=== PATIENT | female | born 1965 | race American Indian/Alaskan Native ===

== ENCOUNTER 2021-06-02 13:58 | Inpatient (IN) | payer SELFPAY ==
[2021-06-02] MEDS ORDERED: ACETAMINOPHEN 325 MG TAB PO PRN ×3 (16:07→17:33)
[2021-06-02] MEDS ORDERED: HYDROmorphone 1 MG/1 ML INJ IV PRN (16:07)
[2021-06-02] MEDS ORDERED: SODIUM CHLORIDE 0.9% 1000 ML 1,000 ML ONE (16:19)
[2021-06-02] MEDS ORDERED: HYDROmorphone 1 MG/1 ML INJ IV ONE (16:20)
[2021-06-02] MEDS ORDERED: LACTATED RINGERS 1,000 ML IV ONE (16:20)
[2021-06-02] MEDS ORDERED: ACETAMINOPHEN 500 MG TAB PO ONE (16:20)
--- NOTE | 2021-06-02 16:22 | Emergency Department Report ---
ED General Adult HPI - General Chief complaint: Skin Rash Stated complaint: RASH PUI?: No Time Seen by Provider: 06/02/21 16:09 Source: patient, RN notes reviewed, old records reviewed Mode of arrival: Ambulatory Limitations: Physical Limitation - History of Present Illness Initial comments: The patient was evaluated in the emergency department for symptoms described in the history of present illness. He/she was evaluated in the context of the global COVID-19 pandemic, which necessitated consideration that the patient might be at risk for infection with the virus that causes COVID-19. Institutional protocols and algorithms that pertain to the evaluation of patients at risk for COVID-19 are in a state of rapid change based on information released by regulatory bodies including the CDC and federal and state organizations. These policies and algorithms were followed during the patient's care in the emergency department. Please note that these policies, procedures and recommendations changed on a rapid basis. Patient is a 55-year-old female. The patient has not shingles vaccinated. The patient cannot recall if she has had chickenpox in the past. Patient presents to the ER today with a complaint of 1 week intensely painful pruritic lesion noted to the left ear, left neck, left shoulder, left posterior thorax, left back. Positive fevers and chills. No vomiting. Does not have an outpatient primary care doctor. Has not had appropriate outpatient health maintenance by her history. -: Gradual, days(s) Location: head, neck, chest, back Quality: burning, stabbing, aching Consistency: constant Improves with: none Worsens with: movement - Related Data Previous Rx's Medication Instructions Recorded Last Taken Type Metoprolol [Lopressor TAB] 25 mg PO BID #60 tablet 10/07/19 Unknown Rx hydroCHLOROthiazide [HCTZ] 25 mg PO QDAY #30 tablet 10/07/19 Unknown Rx levoFLOXacin [Levaquin] 750 mg PO QDAY #7 tablet 10/07/19 Unknown Rx Allergies Allergy/AdvReac Type Severity Reaction Status Date / Time No Known Allergies Allergy Verified 06/02/13 12:06 ED Review of Systems ROS: Stated complaint: RASH Other details as noted in HPI Constitutional: fever, malaise, weakness ENT: denies: epistaxis Respiratory: denies: cough Cardiovascular: denies: chest pain Gastrointestinal: denies: abdominal pain Genitourinary: dysuria Musculoskeletal: arthralgia, myalgia Skin: rash, lesions, change in color Neurological: weakness Psychiatric: anxiety ED Past Medical Hx - Past Medical History Hx Hypertension: Yes Hx Diabetes: Yes Additional medical history: Patient states the patient has been under substantial stress recently. She does have a history of anxiety but she has not been treated for a panic disorder. She is not currently taking any medicines per her . - Surgical History Additional Surgical History: Right Knee surgery - Social History Smoking Status: Current Every Day Smoker - Medications Home Medications: Home Medications Medication Instructions Recorded Confirmed Last Taken Type Metoprolol [Lopressor TAB] 25 mg PO BID #60 tablet 10/07/19 Unknown Rx hydroCHLOROthiazide [HCTZ] 25 mg PO QDAY #30 tablet 10/07/19 Unknown Rx levoFLOXacin [Levaquin] 750 mg PO QDAY #7 tablet 10/07/19 Unknown Rx ED Physical Exam - General Limitations: Physical Limitation General appearance: alert, anxious - Head Head exam: Present: normocephalic - Eye Eye exam: Present: normal appearance, EOMI. Absent: nystagmus - ENT ENT exam: Present: normal exam, normal orophraynx, mucous membranes moist, normal external ear exam - Neck Neck exam: Present: full ROM, other (On the left lateral neck, vesicular excoriated erythematous lesions, noted in the C2, C3, C4, and C5 distribution.). Absent: normal inspection - Respiratory Respiratory exam: Present: other (Pulmonary auscultation not performed secondary to lack of disposable stethoscope). Absent: stridor - Cardiovascular Cardiovascular Exam: Present: tachycardia (Noted on vital signs.), other (Cardiac auscultation not performed secondary to lack of disposable stethoscope) - GI/Abdominal GI/Abdominal exam: Present: soft. Absent: distended, tenderness, guarding, rebound, rigid, pulsatile mass - Extremities Exam Extremities exam: Present: normal inspection, full ROM, other (2+ pulses noted in the bilateral upper and lower extremities. There is no palpable cord. negative Homans sign. Muscular compartments are soft. The pelvis is stable.). Absent: pedal edema, calf tenderness - Back Exam Back exam: Present: normal inspection. Absent: tenderness, CVA tenderness (R), CVA tenderness (L), paraspinal tenderness, vertebral tenderness - Neurological Exam Neurological exam: Present: alert, oriented X3, other (No facial droop. Tongue midline. Extraocular movements intact bilaterally. Facial sensation intact to light touch in V1, V2, V3 distribution bilaterally. 5 and a 5 strength in 4 extremities. Sensation intact to light touch in 4 extremities.). Absent: motor sensory deficit - Psychiatric Psychiatric exam: Present: anxious - Skin Skin exam: Present: rash, erythema, vesicles ED Course Vital Signs 06/02/21 06/02/21 16:03 16:31 Temperature 103.3 F H 102.6 F H Pulse Rate 143 H 118 H Respiratory 17 20 Rate Blood Pressure 145/86 Blood Pressure 151/95 [Right] O2 Sat by Pulse 98 95 Oximetry - Reevaluation(s) Reevaluation #1: 06/02/21 16:58 Maintain patient on isolation 06/02/21 17:04 Hyponatremia likely secondary to hypovolemic hyponatremia. This is likely secondary to sepsis. 06/02/21 17:32 Dr. Lui to admit patient to the medical service. ED Medical Decision Making - Lab Data Result diagrams: 06/02/21 16:25 06/02/21 16:25 Vital Signs 06/02/21 06/02/21 16:03 16:31 Temperature 103.3 F H 102.6 F H Pulse Rate 143 H 118 H Respiratory 17 20 Rate Blood Pressure 145/86 Blood Pressure 151/95 [Right] O2 Sat by Pulse 98 95 Oximetry Lab Results 06/02/21 06/02/21 Range/Units 16:25 16:25 WBC 5.8 (4.5-11.0) K/mm3 RBC 5.59 H (3.65-5.03) M/mm3 Hgb 15.9 H (10.1-14.3) gm/dl Hct 47.2 H (30.3-42.9) % MCV 84 (79-97) fl MCH 28 (28-32) pg MCHC 34 (30-34) % RDW 13.4 (13.2-15.2) % Plt Count 208 (140-440) K/mm3 Lactic Acid 1.30 (0.7-2.0) mmol/L Lab Results 06/02/21 06/02/21 06/02/21 Range/Units 16:25 16:25 16:25 WBC 5.8 (4.5-11.0) K/mm3 RBC 5.59 H (3.65-5.03) M/mm3 Hgb 15.9 H (10.1-14.3) gm/dl Hct 47.2 H (30.3-42.9) % MCV 84 (79-97) fl MCH 28 (28-32) pg MCHC 34 (30-34) % RDW 13.4 (13.2-15.2) % Plt Count 208 (140-440) K/mm3 Add Manual Diff Complete Total Counted 100 Seg Neuts % (Manual) 65.0 (40.0-70.0) % Band Neutrophils % 0 % Lymphocytes % (Manual) 19.0 (13.4-35.0) % Reactive Lymphs % (Man) 0 % Monocytes % (Manual) 15.0 H (0.0-7.3) % Eosinophils % (Manual) 1.0 (0.0-4.3) % Basophils % (Manual) 0 (0.0-1.8) % Metamyelocytes % 0 % Myelocytes % 0 % Promyelocytes % 0 % Blast Cells % 0 % Nucleated RBC % Not Reportable Seg Neutrophils # Man 3.8 (1.8-7.7) K/mm3 Band Neutrophils # 0.0 K/mm3 Lymphocytes # (Manual) 1.1 L (1.2-5.4) K/mm3 Abs React Lymphs (Man) 0.0 K/mm3 Monocytes # (Manual) 0.9 H (0.0-0.8) K/mm3 Eosinophils # (Manual) 0.1 (0.0-0.4) K/mm3 Basophils # (Manual) 0.0 (0.0-0.1) K/mm3 Metamyelocytes # 0.0 K/mm3 Myelocytes # 0.0 K/mm3 Promyelocytes # 0.0 K/mm3 Blast Cells # 0.0 K/mm3 WBC Morphology Not Reportable Hypersegmented Neuts Not Reportable Hyposegmented Neuts Not Reportable Hypogranular Neuts Not Reportable Smudge Cells Not Reportable Toxic Granulation Not Reportable Toxic Vacuolation Not Reportable Dohle Bodies Not Reportable Pelger-Huet Anomaly Not Reportable Neena Rods Not Reportable Platelet Estimate Consistent w auto Clumped Platelets Not Reportable Plt Clumps, EDTA Not Reportable Large Platelets Not Reportable Giant Platelets Not Reportable Platelet Satelliting Not Reportable Plt Morphology Comment Not Reportable RBC Morphology Normal Dimorphic RBCs Not Reportable Polychromasia Not Reportable Hypochromasia Not Reportable Poikilocytosis Not Reportable Anisocytosis Not Reportable Microcytosis Not Reportable Macrocytosis Not Reportable Spherocytes Not Reportable Pappenheimer Bodies Not Reportable Sickle Cells Not Reportable Target Cells Not Reportable Tear Drop Cells Not Reportable Ovalocytes Not Reportable Helmet Cells Not Reportable Payton-[place]at[place]ne Bodies Not Reportable Prosper Rings Not Reportable Mesa Cells Not Reportable Bite Cells Not Reportable Crenated Cell Not Reportable Elliptocytes Not Reportable Acanthocytes (Spur) Not Reportable Rouleaux Not Reportable Hemoglobin C Crystals Not Reportable Schistocytes Not Reportable Malaria parasites Not Reportable Leo Bodies Not Reportable Hem Pathologist Commnt No Sodium 129 L (137-145) mmol/L Potassium 4.5 (3.6-5.0) mmol/L Chloride 94.3 L (98-107) mmol/L Carbon Dioxide 23 (22-30) mmol/L Anion Gap 16 mmol/L BUN 10 (7-17) mg/dL Creatinine 0.7 (0.6-1.2) mg/dL Estimated GFR > 60 ml/min BUN/Creatinine Ratio 14 % Glucose 111 H (65-100) mg/dL Lactic Acid 1.30 (0.7-2.0) mmol/L Calcium 9.2 (8.4-10.2) mg/dL Total Bilirubin 0.50 (0.1-1.2) mg/dL AST 25 (5-40) units/L ALT 35 (7-56) units/L Alkaline Phosphatase 107 (35-129) units/L Total Creatine Kinase (30-135) units/L Total Protein 7.4 (6.3-8.2) g/dL Albumin 3.7 L (3.9-5) g/dL Albumin/Globulin Ratio 1.0 % 06/02/21 Range/Units 16:29 WBC (4.5-11.0) K/mm3 RBC (3.65-5.03) M/mm3 Hgb (10.1-14.3) gm/dl Hct (30.3-42.9) % MCV (79-97) fl MCH (28-32) pg MCHC (30-34) % RDW (13.2-15.2) % Plt Count (140-440) K/mm3 Add Manual Diff Total Counted Seg Neuts % (Manual) (40.0-70.0) % Band Neutrophils % % Lymphocytes % (Manual) (13.4-35.0) % Reactive Lymphs % (Man) % Monocytes % (Manual) (0.0-7.3) % Eosinophils % (Manual) (0.0-4.3) % Basophils % (Manual) (0.0-1.8) % Metamyelocytes % % Myelocytes % % Promyelocytes % % Blast Cells % % Nucleated RBC % Seg Neutrophils # Man (1.8-7.7) K/mm3 Band Neutrophils # K/mm3 Lymphocytes # (Manual) (1.2-5.4) K/mm3 Abs React Lymphs (Man) K/mm3 Monocytes # (Manual) (0.0-0.8) K/mm3 Eosinophils # (Manual) (0.0-0.4) K/mm3 Basophils # (Manual) (0.0-0.1) K/mm3 Metamyelocytes # K/mm3 Myelocytes # K/mm3 Promyelocytes # K/mm3 Blast Cells # K/mm3 WBC Morphology Hypersegmented Neuts Hyposegmented Neuts Hypogranular Neuts Smudge Cells Toxic Granulation Toxic Vacuolation Dohle Bodies Pelger-Huet Anomaly Neena Rods Platelet Estimate Clumped Platelets Plt Clumps, EDTA Large Platelets Giant Platelets Platelet Satelliting Plt Morphology Comment RBC Morphology Dimorphic RBCs Polychromasia Hypochromasia Poikilocytosis Anisocytosis Microcytosis Macrocytosis Spherocytes Pappenheimer Bodies Sickle Cells Target Cells Tear Drop Cells Ovalocytes Helmet Cells Payton-Joppatowne Bodies Prosper Rings Rashard Cells Bite Cells Crenated Cell Elliptocytes Acanthocytes (Spur) Rouleaux Hemoglobin C Crystals Schistocytes Malaria parasites Leo Bodies Hem Pathologist Commnt Sodium (137-145) mmol/L Potassium (3.6-5.0) mmol/L Chloride (98-107) mmol/L Carbon Dioxide (22-30) mmol/L Anion Gap mmol/L BUN (7-17) mg/dL Creatinine (0.6-1.2) mg/dL Estimated GFR ml/min BUN/Creatinine Ratio % Glucose (65-100) mg/dL Lactic Acid (0.7-2.0) mmol/L Calcium (8.4-10.2) mg/dL Total Bilirubin (0.1-1.2) mg/dL AST (5-40) units/L ALT (7-56) units/L Alkaline Phosphatase (35-129) units/L Total Creatine Kinase 171 H (30-135) units/L Total Protein (6.3-8.2) g/dL Albumin (3.9-5) g/dL Albumin/Globulin Ratio % - Medical Decision Making Differential diagnosis, including but not limited to: Bacteremia, viremia, zoster Assessment and plan: 55-year-old female presenting with what appears to be sepsis secondary to multiple dermatomal lesions affected by shingles/zoster, including C2-C6 distributions. She is not encephalopathic. She meets criteria for admission and hospitalization secondary to the aforementioned. Start pain medication, fluids, acyclovir, Bactrim orally, as well as Ancef. Admit this patient to the medical service. Discussed this with the patient. She is agreeable to this plan of care. Laboratory studies pending. Awaiting callback from hospital physician to arrange admission Critical care attestation.: If time is entered above; I have spent that time in minutes in the direct care of this critically ill patient, excluding procedure time. ED Disposition Clinical Impression: SIRS (systemic inflammatory response syndrome), Disseminated zoster, Hyponatremia Disposition: ADMITTED INPATIENT Is pt being admited?: Yes Does the pt Need Aspirin: No Condition: Good Referrals: PRIMARY CARE, [Primary Care Provider] - 3-5 Days
[2021-06-02] MEDS ORDERED: valACYclovir 500 MG TAB PO NR (16:30)
[2021-06-02 16:36] LABS: Hematocrit 47.2 % (30.3-42.9); Hemoglobin 15.9 gm/dl (10.1-14.3); Mean Corpuscular HGB Conc 34 % (30-34); Mean Corpuscular Volume 84 fl (79-97); Platelet Count 208 K/mm3 (140-440); Red Blood Count 5.59 M/mm3 (3.65-5.03); Red Cell Distribution Width 13.4 % (13.2-15.2)
--- NOTE | 2021-06-02 16:36 | Emergency Department Report ---
ED Rash HPI - HPI Stated Complaint: RASH Duration: 5 Days ED Review of Systems ROS: Stated complaint: RASH Other details as noted in HPI ED Past Medical Hx - Past Medical History Hx Hypertension: Yes Hx Diabetes: Yes Additional medical history: Patient states the patient has been under substantial stress recently. She does have a history of anxiety but she has not been treated for a panic disorder. She is not currently taking any medicines per her . - Surgical History Additional Surgical History: Right Knee surgery - Social History Smoking Status: Current Every Day Smoker - Medications Home Medications: Home Medications Medication Instructions Recorded Confirmed Last Taken Type Metoprolol [Lopressor TAB] 25 mg PO BID #60 tablet 10/07/19 Unknown Rx hydroCHLOROthiazide [HCTZ] 25 mg PO QDAY #30 tablet 10/07/19 Unknown Rx levoFLOXacin [Levaquin] 750 mg PO QDAY #7 tablet 10/07/19 Unknown Rx Rash Exam - Exam General: Vital signs noted. No distress. Alert and acting appropriately. ED Course Vital Signs 06/02/21 16:03 Temperature 103.3 F H Pulse Rate 143 H Respiratory 17 Rate Blood Pressure 145/86 O2 Sat by Pulse 98 Oximetry Critical care attestation.: If time is entered above; I have spent that time in minutes in the direct care of this critically ill patient, excluding procedure time. ED Disposition Condition: Stable
[2021-06-02] MEDS ORDERED: ceFAZolin/NS 1 GM/50 ML 1 GM/50 ML BAG IV ONE (16:52)
[2021-06-02] MEDS ORDERED: SULFAMETHOXAZOLE/TRIMETHOPRIM 800/160MG DS TAB PO ONE (16:53)
[2021-06-02] MEDS ORDERED: ACYCLOVIR 800 MG in SODIUM CHLORIDE 0.9% 100 ML IV STA (16:54)
[2021-06-02 16:59] LABS: Alanine Aminotransferase 35 units/L (7-56); Albumin 3.7 g/dL (3.9-5); BUN/Creatinine Ratio 14; Blood Urea Nitrogen 10 mg/dL (7-17); Calcium 9.2 mg/dL (8.4-10.2); Hemolysis Index 17
[2021-06-02] MEDS ORDERED: SODIUM CHLORIDE 0.9% 1000 ML 1,000 ML IV ONE (17:04)
[2021-06-02] MEDS ORDERED: ONDANSETRON 4 MG/2 ML INJ IV PRN (17:33)
[2021-06-02] MEDS ORDERED: SODIUM CHLORIDE 0.9% 1000 ML IV SOLN IV ONE (17:33)
[2021-06-02] MEDS ORDERED: ALBUTEROL 2.5 MG/3 ML NEBU IH PRN (17:33)
--- NOTE | 2021-06-02 17:44 | History and Physical Report ---
History of Present Illness Chief complaint: My skin hurts History of present illness: 55 YO Female with Nicotine Dependence, HTN, RICHY presents to ED for evaluation. Patient states "this stuff hurts". Patient states that she had experienced a painful skin rash over the past 1 week. Patient states that the rash began in the area of her left ear but has subsequently spread to her left neck, left shoulder left back as well as left chest. Patient acknowledges fever to 103 F. Patient transported to [facility] via private vehicle for further care and evaluation of the aforementioned symptoms. The patient was seen and evaluated in the emergency department. All lab and imaging studies reviewed. Fever to 103 F, tachycardia with a heart rate in the 140s, and respiratory rate in the 20s. Patient found to have sepsis secondary to disseminated zoster infection complicated by cellulitis. Patient admitted to medical floor and initiated on sepsis protocol due to increased risk of worsening symptoms. Patient denies chills, chest pain, palpitation, adductive cough, skin rash, recent ill contacts, eye pain, blurred vision, recent ill contacts, known exposure to COVID-19. Prior admission on 09/14/2019 reviewed. All medication listed at time of admission has been reconciled. Advanced care planning conducted in ED. Past History Past Medical History: hypertension, other (See HPI) Past Surgical History: Other (Right knee surgery) Social history: , lives with family, smoking Family history: hypertension Medications and Allergies Allergies Allergy/AdvReac Type Severity Reaction Status Date / Time No Known Allergies Allergy Verified 06/02/13 12:06 Home Medications Medication Instructions Recorded Confirmed Last Taken Type Metoprolol [Lopressor TAB] 25 mg PO BID #60 tablet 10/07/19 Unknown Rx hydroCHLOROthiazide [HCTZ] 25 mg PO QDAY #30 tablet 10/07/19 Unknown Rx levoFLOXacin [Levaquin] 750 mg PO QDAY #7 tablet 10/07/19 Unknown Rx Active Meds: Active Medications Acetaminophen (Acetaminophen 325 Mg Tab) 650 mg PO Q4H PRN PRN Reason: Pain MILD(1-3)/Fever >100.5/DAMIAN Acetaminophen (Acetaminophen 325 Mg Tab) 650 mg PO Q6H PRN PRN Reason: Pain, Mild (1-3) Albuterol (Albuterol 2.5 Mg/3 Ml Nebu) 2.5 mg IH Q4HRT PRN PRN Reason: Shortness Of Breath Hydrochlorothiazide (Hydrochlorothiazide 25 Mg Tab) 25 mg PO QDAY LALITA Hydromorphone HCl (Hydromorphone 1 Mg/1 Ml Inj) 0.5 mg IV Q12H PRN PRN Reason: Pain , Severe (7-10) Acyclovir 800 mg/ Sodium (Chloride) 116 mls @ 100 mls/hr IV NOW STA; Protocol Stop: 06/02/21 18:03 Sodium Chloride (Nacl 0.9% 1000 Ml) 1,000 mls @ 999 mls/hr IV BOLUS ONE Stop: 06/02/21 18:04 Clindamycin HCl (Cleocin 600 Mg/50 Ml) 600 mg in 50 mls @ 100 mls/hr IV Q8H LALITA; Protocol Metoprolol Tartrate (Metoprolol Tartrate 25 Mg Tab) 25 mg PO BID LALITA Ondansetron HCl (Ondansetron 4 Mg/2 Ml Inj) 4 mg IV Q8H PRN PRN Reason: Nausea And Vomiting Oxycodone/Acetaminophen (Oxycodone /Acetaminophen 5-325mg Tab) 1 tab PO Q6H PRN PRN Reason: Pain, Moderate (4-6) Sodium Chloride (Sodium Chloride 0.9% 10 Ml Flush Syringe) 10 ml IV BID LALITA Sodium Chloride (Sodium Chloride 0.9% 10 Ml Flush Syringe) 10 ml IV PRN PRN PRN Reason: LINE FLUSH Sodium Chloride (Sodium Chloride 0.9% 1000 Ml Iv Soln) 1,770 ml 30 ml/kg (1770 ml) IV ONCE ONE Stop: 06/02/21 17:34 Review of Systems Constitutional: fever, no weight loss, no weight gain, no chills, no weakness, no malaise, no lethargy Ears, nose, mouth and throat: no ear pain, no ear discharge, no tinnitis, no decreased hearing Breasts: no change in shape, no swelling, no mass Cardiovascular: no chest pain, no orthopnea, no palpitations Respiratory: no cough, no cough with sputum, no excessive sputum, no hemoptysis Gastrointestinal: no nausea, no vomiting, no diarrhea, no change in bowel habits, no hematemesis Genitourinary Female: no pelvic pain, no flank pain, no dysuria, no urinary f requency, no urgency Rectal: no pain, no incontinence, no bleeding Musculoskeletal: no neck stiffness, no neck pain, no arm numbness/tingling, no low back pain, no leg numbness/tingling Integumentary: rash, blisters, other (Erythema) Neurological: no transient paralysis, no paralysis, no weakness, no parathesias, no tingling, no seizures, no syncope Psychiatric: anxiety, no change in sleep habits, no insomnia, no hypersomnia, no disorientation Endocrine: no cold intolerance, no heat intolerance, no polyphagia, no excessive thirst, no polydipsia, no nocturia Hematologic/Lymphatic: no easy bruising, no easy bleeding, no lymphedema Allergic/Immunologic: no urticaria, no persistent infections, no anaphylaxis Exam - Constitutional Vitals: Temp Pulse Resp BP Pulse Ox 102.6 F H 118 H 20 151/95 95 06/02/21 16:31 06/02/21 16:31 06/02/21 16:31 06/02/21 16:31 06/02/21 16:31 General appearance: Present: mild distress - EENT Eyes: Present: PERRL ENT: hearing intact, clear oral mucosa - Neck Neck: Present: supple, normal ROM - Respiratory Respiratory effort: normal Respiratory: bilateral: CTA - Cardiovascular Heart Sounds: Present: S1 & S2. Absent: rub, click - Extremities Extremities: pulses symmetrical, No edema Peripheral Pulses: abnormal (Capillary refill greater than 3.5 seconds) - Abdominal General gastrointestinal: Present: soft, non-tender, non-distended, normal bowel sounds Female genitourinary: Present: normal - Integumentary Integumentary: Present: clear, erythema, rash, decreased turgor - Musculoskeletal Musculoskeletal: generalized weakness - Psychiatric Psychiatric: appropriate mood/affect, intact judgment & insight, cooperative - Neurologic Neurologic: CNII-XII intact, moves all extremities Results - Labs CBC & Chem 7: 06/02/21 16:25 06/02/21 16:25 Labs: Abnormal lab results 06/02/21 06/02/21 06/02/21 Range/Units 16:25 16:25 16:29 RBC 5.59 H (3.65-5.03) M/mm3 Hgb 15.9 H (10.1-14.3) gm/dl Hct 47.2 H (30.3-42.9) % Sodium 129 L (137-145) mmol/L Chloride 94.3 L (98-107) mmol/L Glucose 111 H (65-100) mg/dL Total Creatine Kinase 171 H (30-135) units/L Albumin 3.7 L (3.9-5) g/dL Assessment and Plan - Patient Problems (1) Sepsis Current Visit: Yes Status: Acute Plan to address problem: Sepsis protocol: CBC, CMP, urinalysis, IV antibiotic therapy, IV fluid res uscitation therapy, maintain mean arterial pressure greater than or equal to 65, monitor fluid balance, serial lactic acid level, blood culture. (2) Cellulitis Current Visit: Yes Status: Acute Qualifiers: Site of cellulitis: neck Qualified Code(s): L03.221 - Cellulitis of neck Plan to address problem: IV antibiotic therapy, supportive care, wound care consult. (3) Hyponatremia syndrome Current Visit: Yes Status: Acute Plan to address problem: BMP, IV fluid resuscitation therapy, repeat BMP in a.m. (4) Nicotine dependence Current Visit: Yes Status: Acute Qualifiers: Nicotine product type: cigarettes Substance use status: in withdrawal Qualified Code(s): F17.213 - Nicotine dependence, cigarettes, with withdrawal Plan to address problem: Smoking cessation counseling, supportive care, behavior change counseling, +15 minutes. (5) Hypertension Current Visit: Yes Status: Acute Qualifiers: Hypertension type: primary hypertension Qualified Code(s): I10 - Essential (primary) hypertension Plan to address problem: Monitor blood pressure every shift, continue medical management. (6) Diabetes Current Visit: Yes Status: Acute Plan to address problem: Consistent carbohydrate diet, Accu-Chek, hypoglycemia protocol, insulin protocol. (7) Disseminated zoster Current Visit: Yes Status: Acute Plan to address problem: Acyclovir 10 mg/kg every 8 hours, wound care, pain control (8) DVT prophylaxis Current Visit: Yes Status: Acute Plan to address problem: SCD to bilateral lower extremities while in bed, patient is ambulatory (9) Advance care planning Current Visit: Yes Status: Acute Plan to address problem: Disease education conducted, care plan discussed, diagnosis discussed, prognosis discussed, patient is full code. Patient acknowledges understanding and agreement with care plan, +30 minutes.
[2021-06-02 17:51] LABS: Basophils % (Manual) 0 % (0.0-1.8); Platelet Estimate Consistent w Auto; RBC Morphology Normal; Total Cells Counted 100
[2021-06-02] MEDS: CLINDAMYCIN 600 MG/50 mL 600 MG/50 ML BAG IV SCH (19:21)
[2021-06-02] MEDS: HYDROmorphone 1 MG/1 ML INJ IV PRN (22:22)
[2021-06-03] MEDS: SODIUM CHLORIDE 0.9% IV SCH ×4 (04:40→22:19)
[2021-06-03] MEDS: ACYCLOVIR IV SCH ×4 (04:40→22:19)
[2021-06-03] MEDS: METOPROLOL TARTRATE 25 MG TAB PO SCH ×3 (05:32→22:18)
[2021-06-03] MEDS: CLINDAMYCIN 600 MG/50 mL 600 MG/50 ML BAG IV SCH ×2 (05:33→11:32)
[2021-06-03] MEDS: HYDROmorphone 1 MG/1 ML INJ IV PRN (05:33)
--- NOTE | 2021-06-03 08:57 | Progress Note ---
Assessment and Plan Assessment and plan: #Disseminated zoster #Cellulitis -Patient unvaccinated for shingles; history of chickenpox in childhood -Blood cultures ordered -Continue acyclovir and clindamycin -As needed pain control -Continue contact precautions #Hypertension -Continue metoprolol and hydrochlorothiazide #Hyponatremia -Na 129 -NS started, likely hypovolemic hyponatremia -will continue to monitor Disposition Plan: Continue medical management History Interval history: No acute events overnight. Patient wants to leave AGAINST MEDICAL ADVICE due to receiving cold food. Continues to have excruciating pain on her neck and back. No other complaints at this time. Hospitalist Physical - Physical exam Narrative exam: GENERAL: Well-developed well-nourished. Sitting on the side of the bed in no acute distress. HEENT: Scaling rash with vesicles and crusting on the left chest left-sided face neck and shoulder CHEST/LUNGS: CTAB on room air HEART/CARDIOVASCULAR: Tachycardic. No murmur, rubs or gallops appreciated. ABDOMEN: +BS. NT/ND. SKIN: No rashes noted. NEURO: No focal motor deficit. Follows all commands and is ambulatory. MUSCULOSKELETAL: No joint effusion EXTREMITIES: No cyanosis, clubbing or edema. PSYCH: Cooperative. - Constitutional Vitals: Temp Pulse Resp BP Pulse Ox 98.5 F 110 H 19 184/102 100 06/03/21 05:01 06/03/21 05:01 06/03/21 05:01 06/03/21 05:01 06/03/21 07:43 General appearance: Present: mild distress Results - Labs CBC & Chem 7: 06/05/21 08:04 06/05/21 08:04 Labs: Laboratory Last Values WBC 5.8 K/mm3 (4.5-11.0) 06/02/21 16:25 RBC 5.59 M/mm3 (3.65-5.03) H 06/02/21 16:25 Hgb 15.9 gm/dl (10.1-14.3) H 06/02/21 16:25 Hct 47.2 % (30.3-42.9) H 06/02/21 16:25 MCV 84 fl (79-97) 06/02/21 16:25 MCH 28 pg (28-32) 06/02/21 16:25 MCHC 34 % (30-34) 06/02/21 16:25 RDW 13.4 % (13.2-15.2) 06/02/21 16:25 Plt Count 208 K/mm3 (140-440) 06/02/21 16:25 Add Manual Diff Complete 06/02/21 16:25 Total Counted 100 06/02/21 16:25 Seg Neuts % (Manual) 65.0 % (40.0-70.0) 06/02/21 16:25 Band Neutrophils % 0 % 06/02/21 16:25 Lymphocytes % (Manual) 19.0 % (13.4-35.0) 06/02/21 16:25 Reactive Lymphs % (Man) 0 % 06/02/21 16:25 Monocytes % (Manual) 15.0 % (0.0-7.3) H 06/02/21 16:25 Eosinophils % (Manual) 1.0 % (0.0-4.3) 06/02/21 16:25 Basophils % (Manual) 0 % (0.0-1.8) 06/02/21 16:25 Metamyelocytes % 0 % 06/02/21 16:25 Myelocytes % 0 % 06/02/21 16:25 Promyelocytes % 0 % 06/02/21 16:25 Blast Cells % 0 % 06/02/21 16:25 Nucleated RBC % Not Reportable 06/02/21 16:25 Seg Neutrophils # Man 3.8 K/mm3 (1.8-7.7) 06/02/21 16:25 Band Neutrophils # 0.0 K/mm3 06/02/21 16:25 Lymphocytes # (Manual) 1.1 K/mm3 (1.2-5.4) L 06/02/21 16:25 Abs React Lymphs (Man) 0.0 K/mm3 06/02/21 16:25 Monocytes # (Manual) 0.9 K/mm3 (0.0-0.8) H 06/02/21 16:25 Eosinophils # (Manual) 0.1 K/mm3 (0.0-0.4) 06/02/21 16:25 Basophils # (Manual) 0.0 K/mm3 (0.0-0.1) 06/02/21 16:25 Metamyelocytes # 0.0 K/mm3 06/02/21 16:25 Myelocytes # 0.0 K/mm3 06/02/21 16:25 Promyelocytes # 0.0 K/mm3 06/02/21 16:25 Blast Cells # 0.0 K/mm3 06/02/21 16:25 WBC Morphology Not Reportable 06/02/21 16:25 Hypersegmented Neuts Not Reportable 06/02/21 16:25 Hyposegmented Neuts Not Reportable 06/02/21 16:25 Hypogranular Neuts Not Reportable 06/02/21 16:25 Smudge Cells Not Reportable 06/02/21 16:25 Toxic Granulation Not Reportable 06/02/21 16:25 Toxic Vacuolation Not Reportable 06/02/21 16:25 Dohle Bodies Not Reportable 06/02/21 16:25 Pelger-Huet Anomaly Not Reportable 06/02/21 16:25 Neena Rods Not Reportable 06/02/21 16:25 Platelet Estimate Consistent w auto 06/02/21 16:25 Clumped Platelets Not Reportable 06/02/21 16:25 Plt Clumps, EDTA Not Reportable 06/02/21 16:25 Large Platelets Not Reportable 06/02/21 16:25 Giant Platelets Not Reportable 06/02/21 16:25 Platelet Satelliting Not Reportable 06/02/21 16:25 Plt Morphology Comment Not Reportable 06/02/21 16:25 RBC Morphology Normal 06/02/21 16:25 Dimorphic RBCs Not Reportable 06/02/21 16:25 Polychromasia Not Reportable 06/02/21 16:25 Hypochromasia Not Reportable 06/02/21 16:25 Poikilocytosis Not Reportable 06/02/21 16:25 Anisocytosis Not Reportable 06/02/21 16:25 Microcytosis Not Reportable 06/02/21 16:25 Macrocytosis Not Reportable 06/02/21 16:25 Spherocytes Not Reportable 06/02/21 16:25 Pappenheimer Bodies Not Reportable 06/02/21 16:25 Sickle Cells Not Reportable 06/02/21 16:25 Target Cells Not Reportable 06/02/21 16:25 Tear Drop Cells Not Reportable 06/02/21 16:25 Ovalocytes Not Reportable 06/02/21 16:25 Helmet Cells Not Reportable 06/02/21 16:25 Payton-[place] Bodies Not Reportable 06/02/21 16:25 [place] Rings Not Reportable 06/02/21 16:25 Ava Cells Not Reportable 06/02/21 16:25 Bite Cells Not Reportable 06/02/21 16:25 Crenated Cell Not Reportable 06/02/21 16:25 Elliptocytes Not Reportable 06/02/21 16:25 Acanthocytes (Spur) Not Reportable 06/02/21 16:25 Rouleaux Not Reportable 06/02/21 16:25 Hemoglobin C Crystals Not Reportable 06/02/21 16:25 Schistocytes Not Reportable 06/02/21 16:25 Malaria parasites Not Reportable 06/02/21 16:25 Leo Bodies Not Reportable 06/02/21 16:25 Hem Pathologist Commnt No 06/02/21 16:25 Sodium 129 mmol/L (137-145) L 06/02/21 16:25 Potassium 4.5 mmol/L (3.6-5.0) 06/02/21 16:25 Chloride 94.3 mmol/L (98-107) L 06/02/21 16:25 Carbon Dioxide 23 mmol/L (22-30) 06/02/21 16:25 Anion Gap 16 mmol/L 06/02/21 16:25 BUN 10 mg/dL (7-17) 06/02/21 16:25 Creatinine 0.7 mg/dL (0.6-1.2) 06/02/21 16:25 Estimated GFR > 60 ml/min 06/02/21 16:25 BUN/Creatinine Ratio 14 % 06/02/21 16:25 Glucose 111 mg/dL (65-100) H 06/02/21 16:25 Lactic Acid 0.90 mmol/L (0.7-2.0) 06/03/21 07:55 Calcium 9.2 mg/dL (8.4-10.2) 06/02/21 16:25 Total Bilirubin 0.50 mg/dL (0.1-1.2) 06/02/21 16:25 AST 25 units/L (5-40) 06/02/21 16:25 ALT 35 units/L (7-56) 06/02/21 16:25 Alkaline Phosphatase 107 units/L (35-129) 06/02/21 16:25 Total Creatine Kinase 171 units/L (30-135) H 06/02/21 16:29 Total Protein 7.4 g/dL (6.3-8.2) 06/02/21 16:25 Albumin 3.7 g/dL (3.9-5) L 06/02/21 16:25 Albumin/Globulin Ratio 1.0 % 06/02/21 16:25 Blood Type B POSITIVE 06/02/21 18:18 Antibody Screen Negative 06/02/21 18:18 Microbiology: Microbiology 06/02/21 16:29 Peripheral/Venous Blood Culture - Preliminary Culture in Progress Astudillo/IV: Voiding Method Toilet Active Medications - Current Medications Current Medications: Generic Name Dose Route Start Last Admin Trade Name Freq PRN Reason Stop Dose Admin Acetaminophen 650 mg 06/02/21 17:33 Acetaminophen 325 Mg Tab PO Q4H PRN Pain MILD(1-3)/Fever >100.5/DAMIAN Albuterol 2.5 mg 06/02/21 17:33 Albuterol 2.5 Mg/3 Ml Nebu IH Q4HRT PRN Shortness Of Breath Hydrochlorothiazide 25 mg 06/03/21 10:00 Hydrochlorothiazide 25 Mg Tab PO QDAY LALITA Hydromorphone HCl 0.5 mg 06/02/21 17:33 06/03/21 05:33 Hydromorphone 1 Mg/1 Ml Inj IV 0.5 mg Q12H PRN Administration Pain , Severe (7-10) Clindamycin HCl 600 mg in 50 mls @ 100 mls/hr 06/02/21 18:00 06/03/21 05:33 Cleocin 600 Mg/50 Ml IV 100 mls/hr Q8H LALITA Administration Protocol Acyclovir 590 mg/ Sodium 111.8 mls @ 100 mls/hr 06/02/21 22:00 06/03/21 06:31 Chloride IV 100 mls/hr Q8HR LALITA Administration Protocol Metoprolol Tartrate 25 mg 06/02/21 22:00 06/03/21 05:32 Metoprolol Tartrate 25 Mg Tab PO 25 mg BID LALITA Administration Ondansetron HCl 4 mg 06/02/21 17:33 Ondansetron 4 Mg/2 Ml Inj IV Q8H PRN Nausea And Vomiting Oxycodone/Acetaminophen 1 tab 06/02/21 17:33 Oxycodone /Acetaminophen 5-325mg Tab PO Q6H PRN Pain, Moderate (4-6) Sodium Chloride 10 ml 06/02/21 22:00 06/03/21 05:08 Sodium Chloride 0.9% 10 Ml Flush Syringe IV Not Given BID LALITA Sodium Chloride 10 ml 06/02/21 17:33 Sodium Chloride 0.9% 10 Ml Flush Syringe IV PRN PRN LINE FLUSH
[2021-06-03] MEDS: hydroCHLOROthiazide 25 MG TAB PO SCH (09:28)
[2021-06-03 09:34] LABS: Hematocrit 41.4 % (30.3-42.9); Hemoglobin 13.9 gm/dl (10.1-14.3); Mean Corpuscular HGB Conc 34 % (30-34); Mean Corpuscular Volume 85 fl (79-97); Platelet Count 154 K/mm3 (140-440); Red Blood Count 4.85 M/mm3 (3.65-5.03); Red Cell Distribution Width 13.1 % (13.2-15.2)
[2021-06-03 12:13] LABS: Total Cells Counted 100
[2021-06-03 12:15] LABS: Platelet Estimate Consistent w Auto; RBC Morphology Normal
[2021-06-04] MEDS: HYDROmorphone 1 MG/1 ML INJ IV PRN ×2 (01:03→22:46)
[2021-06-04] MEDS: CLINDAMYCIN 600 MG/50 mL 600 MG/50 ML BAG IV SCH ×5 (02:00→22:48)
[2021-06-04] MEDS: SODIUM CHLORIDE 0.9% IV SCH ×3 (05:47→22:48)
[2021-06-04] MEDS: ACYCLOVIR IV SCH ×3 (05:47→22:48)
[2021-06-04 06:28] LABS: Hematocrit 41.8 % (30.3-42.9); Hemoglobin 14.1 gm/dl (10.1-14.3); Mean Corpuscular HGB Conc 34 % (30-34); Mean Corpuscular Volume 84 fl (79-97); Platelet Count 181 K/mm3 (140-440); Red Blood Count 4.97 M/mm3 (3.65-5.03)
[2021-06-04 06:46] LABS: Blood Urea Nitrogen 10 mg/dL (7-17); Hemolysis Index 4
[2021-06-04 07:31] LABS: BUN/Creatinine Ratio 17
--- NOTE | 2021-06-04 08:54 | Progress Note ---
Assessment and Plan Assessment and plan: #Disseminated zoster #Cellulitis -Patient unvaccinated for shingles; history of chickenpox in childhood -Blood cultures no growth to date x24 hours -Continue acyclovir and clindamycin -As needed pain control -Continue contact precautions #Hypertension -Continue metoprolol and hydrochlorothiazide #Hyponatremia -Continue NS, likely hypovolemic hyponatremia -will continue to monitor History Interval history: No acute events overnight. Patient denies facial pain today. Reported pain has improved significantly since admission. No complaints at this time. Hospitalist Physical - Physical exam Narrative exam: GENERAL: Well-developed well-nourished. In no acute distress. HEENT: Scaling rash with vesicles and crusting on the left chest left-sided face neck and shoulder CHEST/LUNGS: CTAB on room air HEART/CARDIOVASCULAR: RRR. No murmur, rubs or gallops appreciated. ABDOMEN: +BS. NT/ND. NEURO: No focal motor deficit. EXTREMITIES: No cyanosis, clubbing or edema. PSYCH: Cooperative. - Constitutional Vitals: Temp Pulse Resp BP Pulse Ox 97.2 F L 94 H 16 156/85 97 06/04/21 05:42 06/04/21 05:42 06/04/21 05:42 06/04/21 05:42 06/04/21 05:42 General appearance: Present: mild distress Results - Labs CBC & Chem 7: 06/05/21 08:04 06/05/21 08:04 Labs: Laboratory Last Values WBC 5.0 K/mm3 (4.5-11.0) 06/04/21 05:59 RBC 4.97 M/mm3 (3.65-5.03) 06/04/21 05:59 Hgb 14.1 gm/dl (10.1-14.3) 06/04/21 05:59 Hct 41.8 % (30.3-42.9) 06/04/21 05:59 MCV 84 fl (79-97) 06/04/21 05:59 MCH 29 pg (28-32) 06/04/21 05:59 MCHC 34 % (30-34) 06/04/21 05:59 RDW 13.0 % (13.2-15.2) L 06/04/21 05:59 Plt Count 181 K/mm3 (140-440) 06/04/21 05:59 Graves % (Auto) Pole Classifier 06/03/21 07:55 Baso % (Auto) Pole Classifier 06/03/21 07:55 Add Manual Diff Complete 06/03/21 07:55 Total Counted 100 06/03/21 07:55 Seg Neuts % (Manual) 56.0 % (40.0-70.0) 06/03/21 07:55 Band Neutrophils % 0 % 06/03/21 07:55 Lymphocytes % (Manual) 19.0 % (13.4-35.0) 06/03/21 07:55 Reactive Lymphs % (Man) 8.0 % 06/03/21 07:55 Monocytes % (Manual) 14.0 % (0.0-7.3) H 06/03/21 07:55 Eosinophils % (Manual) 2.0 % (0.0-4.3) 06/03/21 07:55 Basophils % (Manual) 1.0 % (0.0-1.8) 06/03/21 07:55 Metamyelocytes % 0 % 06/03/21 07:55 Myelocytes % 0 % 06/03/21 07:55 Promyelocytes % 0 % 06/03/21 07:55 Blast Cells % 0 % 06/03/21 07:55 Nucleated RBC % Not Reportable 06/03/21 07:55 Seg Neutrophils # Man 2.5 K/mm3 (1.8-7.7) 06/03/21 07:55 Band Neutrophils # 0.0 K/mm3 06/03/21 07:55 Lymphocytes # (Manual) 0.9 K/mm3 (1.2-5.4) L 06/03/21 07:55 Abs React Lymphs (Man) 0.4 K/mm3 06/03/21 07:55 Monocytes # (Manual) 0.6 K/mm3 (0.0-0.8) 06/03/21 07:55 Eosinophils # (Manual) 0.1 K/mm3 (0.0-0.4) 06/03/21 07:55 Basophils # (Manual) 0.0 K/mm3 (0.0-0.1) 06/03/21 07:55 Metamyelocytes # 0.0 K/mm3 06/03/21 07:55 Myelocytes # 0.0 K/mm3 06/03/21 07:55 Promyelocytes # 0.0 K/mm3 06/03/21 07:55 Blast Cells # 0.0 K/mm3 06/03/21 07:55 WBC Morphology Not Reportable 06/03/21 07:55 WBC Morphology TNR 06/03/21 07:55 Hypersegmented Neuts Not Reportable 06/03/21 07:55 Hyposegmented Neuts Not Reportable 06/03/21 07:55 Hypogranular Neuts Not Reportable 06/03/21 07:55 Smudge Cells Not Reportable 06/03/21 07:55 Toxic Granulation Not Reportable 06/03/21 07:55 Toxic Vacuolation Not Reportable 06/03/21 07:55 Dohle Bodies Not Reportable 06/03/21 07:55 Pelger-Huet Anomaly Not Reportable 06/03/21 07:55 Neena Rods Not Reportable 06/03/21 07:55 Platelet Estimate Consistent w auto 06/03/21 07:55 Clumped Platelets Not Reportable 06/03/21 07:55 Plt Clumps, EDTA Not Reportable 06/03/21 07:55 Large Platelets Not Reportable 06/03/21 07:55 Giant Platelets Not Reportable 06/03/21 07:55 Platelet Satelliting Not Reportable 06/03/21 07:55 Plt Morphology Comment Not Reportable 06/03/21 07:55 RBC Morphology Normal 06/03/21 07:55 Dimorphic RBCs Not Reportable 06/03/21 07:55 Polychromasia Not Reportable 06/03/21 07:55 Hypochromasia Not Reportable 06/03/21 07:55 Poikilocytosis Not Reportable 06/03/21 07:55 Anisocytosis Not Reportable 06/03/21 07:55 Microcytosis Not Reportable 06/03/21 07:55 Macrocytosis Not Reportable 06/03/21 07:55 Spherocytes Not Reportable 06/03/21 07:55 Pappenheimer Bodies Not Reportable 06/03/21 07:55 Sickle Cells Not Reportable 06/03/21 07:55 Target Cells Not Reportable 06/03/21 07:55 Tear Drop Cells Not Reportable 06/03/21 07:55 Ovalocytes Not Reportable 06/03/21 07:55 Helmet Cells Not Reportable 06/03/21 07:55 Payton-[place] Bodies Not Reportable 06/03/21 07:55 [place] Rings Not Reportable 06/03/21 07:55 [place] Cells Not Reportable 06/03/21 07:55 Bite Cells Not Reportable 06/03/21 07:55 Crenated Cell Not Reportable 06/03/21 07:55 Elliptocytes Not Reportable 06/03/21 07:55 Acanthocytes (Spur) Not Reportable 06/03/21 07:55 Rouleaux Not Reportable 06/03/21 07:55 Hemoglobin C Crystals Not Reportable 06/03/21 07:55 Schistocytes Not Reportable 06/03/21 07:55 Malaria parasites Not Reportable 06/03/21 07:55 Leo Bodies Not Reportable 06/03/21 07:55 Hem Pathologist Commnt No 06/03/21 07:55 Sodium 129 mmol/L (137-145) L 06/04/21 05:59 Potassium 3.7 mmol/L (3.6-5.0) 06/04/21 05:59 Chloride 92.8 mmol/L (98-107) L 06/04/21 05:59 Carbon Dioxide 24 mmol/L (22-30) 06/04/21 05:59 Anion Gap 16 mmol/L 06/04/21 05:59 BUN 10 mg/dL (7-17) 06/04/21 05:59 Creatinine 0.6 mg/dL (0.6-1.2) 06/04/21 05:59 Estimated GFR > 60 ml/min 06/04/21 05:59 BUN/Creatinine Ratio 17 % 06/04/21 05:59 Glucose 88 mg/dL (65-100) 06/04/21 05:59 Lactic Acid 0.90 mmol/L (0.7-2.0) 06/03/21 07:55 Calcium 9.0 mg/dL (8.4-10.2) 06/04/21 05:59 Total Bilirubin 0.50 mg/dL (0.1-1.2) 06/02/21 16:25 AST 25 units/L (5-40) 06/02/21 16:25 ALT 35 units/L (7-56) 06/02/21 16:25 Alkaline Phosphatase 107 units/L (35-129) 06/02/21 16:25 Total Creatine Kinase 171 units/L (30-135) H 06/02/21 16:29 Total Protein 7.4 g/dL (6.3-8.2) 06/02/21 16:25 Albumin 3.7 g/dL (3.9-5) L 06/02/21 16:25 Albumin/Globulin Ratio 1.0 % 06/02/21 16:25 Blood Type B POSITIVE 06/02/21 18:18 Antibody Screen Negative 06/02/21 18:18 Microbiology: Microbiology 06/02/21 16:25 Peripheral/Venous Blood Culture - Preliminary NO GROWTH AFTER 24 HOURS 06/02/21 16:29 Peripheral/Venous Blood Culture - Preliminary NO GROWTH AFTER 24 HOURS Astudillo/IV: Voiding Method Toilet Active Medications - Current Medications Current Medications: Generic Name Dose Route Start Last Admin Trade Name Freq PRN Reason Stop Dose Admin Acetaminophen 650 mg 06/02/21 17:33 Acetaminophen 325 Mg Tab PO Q4H PRN Pain MILD(1-3)/Fever >100.5/DAMIAN Albuterol 2.5 mg 06/02/21 17:33 Albuterol 2.5 Mg/3 Ml Nebu IH Q4HRT PRN Shortness Of Breath Hydrochlorothiazide 25 mg 06/03/21 10:00 06/03/21 09:28 Hydrochlorothiazide 25 Mg Tab PO 25 mg QDAY LALITA Administration Hydromorphone HCl 0.5 mg 06/02/21 17:33 06/04/21 01:03 Hydromorphone 1 Mg/1 Ml Inj IV 0.5 mg Q12H PRN Administration Pain , Severe (7-10) Clindamycin HCl 600 mg in 50 mls @ 100 mls/hr 06/02/21 18:00 06/04/21 02:00 Cleocin 600 Mg/50 Ml IV 100 mls/hr Q8H LALITA Administration Protocol Acyclovir 590 mg/ Sodium 111.8 mls @ 100 mls/hr 06/02/21 22:00 06/04/21 05:47 Chloride IV 100 mls/hr Q8HR LALITA Administration Protocol Metoprolol Tartrate 25 mg 06/02/21 22:00 06/03/21 22:18 Metoprolol Tartrate 25 Mg Tab PO 25 mg BID LALITA Administration Ondansetron HCl 4 mg 06/02/21 17:33 Ondansetron 4 Mg/2 Ml Inj IV Q8H PRN Nausea And Vomiting Oxycodone/Acetaminophen 1 tab 06/02/21 17:33 Oxycodone /Acetaminophen 5-325mg Tab PO Q6H PRN Pain, Moderate (4-6) Sodium Chloride 10 ml 06/02/21 22:00 06/03/21 22:23 Sodium Chloride 0.9% 10 Ml Flush Syringe IV 10 ml BID LALITA Administration Sodium Chloride 10 ml 06/02/21 17:33 Sodium Chloride 0.9% 10 Ml Flush Syringe IV PRN PRN LINE FLUSH
[2021-06-04] MEDS: METOPROLOL TARTRATE 25 MG TAB PO SCH ×2 (10:06→22:45)
[2021-06-04] MEDS: hydroCHLOROthiazide 25 MG TAB PO SCH (10:06)
[2021-06-04] MEDS: oxyCODONE /ACETAMINOPHEN 5-325MG TAB PO PRN (13:18)
[2021-06-05] MEDS: SODIUM CHLORIDE 0.9% IV SCH ×3 (06:12→22:20)
[2021-06-05] MEDS: oxyCODONE /ACETAMINOPHEN 5-325MG TAB PO PRN ×2 (06:12→20:54)
[2021-06-05] MEDS: ACYCLOVIR IV SCH ×3 (06:12→22:20)
--- NOTE | 2021-06-05 07:45 | Progress Note ---
Assessment and Plan Assessment and plan: #Disseminated zoster #Cellulitis -Patient unvaccinated for shingles; history of chickenpox in childhood -Blood cultures no growth to date x48 hours -Continue acyclovir and clindamycin -As needed pain control -Continue contact precautions -Infectious disease consulted for final outpatient antibiotic/antiviral medications recommendations #Hypertension -Continue metoprolol and hydrochlorothiazide #Hyponatremia-resolved -likely hypovolemic hyponatremia -s/p IVFs -will continue to monitor Disposition Plan: continue medical management History Interval history: No acute events overnight. Patient has no complaints at this time. Hospitalist Physical - Physical exam Narrative exam: GENERAL: Well-developed well-nourished. In no acute distress. HEENT: Scaling rash with vesicles and crusting on the left chest left-sided face neck and shoulder CHEST/LUNGS: CTAB on room air HEART/CARDIOVASCULAR: RRR. No murmur, rubs or gallops appreciated. ABDOMEN: +BS. NT/ND. NEURO: No focal motor deficit. EXTREMITIES: No cyanosis, clubbing or edema. PSYCH: Cooperative. - Constitutional Vitals: Temp Pulse Resp BP Pulse Ox 98.5 F 85 18 144/85 96 06/05/21 05:55 06/05/21 05:55 06/05/21 05:55 06/05/21 05:55 06/05/21 05:55 General appearance: Present: mild distress Results - Labs CBC & Chem 7: 06/05/21 08:04 06/05/21 08:04 Labs: Laboratory Last Values WBC 5.0 K/mm3 (4.5-11.0) 06/04/21 05:59 RBC 4.97 M/mm3 (3.65-5.03) 06/04/21 05:59 Hgb 14.1 gm/dl (10.1-14.3) 06/04/21 05:59 Hct 41.8 % (30.3-42.9) 06/04/21 05:59 MCV 84 fl (79-97) 06/04/21 05:59 MCH 29 pg (28-32) 06/04/21 05:59 MCHC 34 % (30-34) 06/04/21 05:59 RDW 13.0 % (13.2-15.2) L 06/04/21 05:59 Plt Count 181 K/mm3 (140-440) 06/04/21 05:59 Avery % (Auto) [employer] Developer 06/03/21 07:55 Baso % (Auto) [employer] Developer 06/03/21 07:55 Add Manual Diff Complete 06/03/21 07:55 Total Counted 100 06/03/21 07:55 Seg Neuts % (Manual) 56.0 % (40.0-70.0) 06/03/21 07:55 Band Neutrophils % 0 % 06/03/21 07:55 Lymphocytes % (Manual) 19.0 % (13.4-35.0) 06/03/21 07:55 Reactive Lymphs % (Man) 8.0 % 06/03/21 07:55 Monocytes % (Manual) 14.0 % (0.0-7.3) H 06/03/21 07:55 Eosinophils % (Manual) 2.0 % (0.0-4.3) 06/03/21 07:55 Basophils % (Manual) 1.0 % (0.0-1.8) 06/03/21 07:55 Metamyelocytes % 0 % 06/03/21 07:55 Myelocytes % 0 % 06/03/21 07:55 Promyelocytes % 0 % 06/03/21 07:55 Blast Cells % 0 % 06/03/21 07:55 Nucleated RBC % Not Reportable 06/03/21 07:55 Seg Neutrophils # Man 2.5 K/mm3 (1.8-7.7) 06/03/21 07:55 Band Neutrophils # 0.0 K/mm3 06/03/21 07:55 Lymphocytes # (Manual) 0.9 K/mm3 (1.2-5.4) L 06/03/21 07:55 Abs React Lymphs (Man) 0.4 K/mm3 06/03/21 07:55 Monocytes # (Manual) 0.6 K/mm3 (0.0-0.8) 06/03/21 07:55 Eosinophils # (Manual) 0.1 K/mm3 (0.0-0.4) 06/03/21 07:55 Basophils # (Manual) 0.0 K/mm3 (0.0-0.1) 06/03/21 07:55 Metamyelocytes # 0.0 K/mm3 06/03/21 07:55 Myelocytes # 0.0 K/mm3 06/03/21 07:55 Promyelocytes # 0.0 K/mm3 06/03/21 07:55 Blast Cells # 0.0 K/mm3 06/03/21 07:55 WBC Morphology Not Reportable 06/03/21 07:55 WBC Morphology TNR 06/03/21 07:55 Hypersegmented Neuts Not Reportable 06/03/21 07:55 Hyposegmented Neuts Not Reportable 06/03/21 07:55 Hypogranular Neuts Not Reportable 06/03/21 07:55 Smudge Cells Not Reportable 06/03/21 07:55 Toxic Granulation Not Reportable 06/03/21 07:55 Toxic Vacuolation Not Reportable 06/03/21 07:55 Dohle Bodies Not Reportable 06/03/21 07:55 Pelger-Huet Anomaly Not Reportable 06/03/21 07:55 Neena Rods Not Reportable 06/03/21 07:55 Platelet Estimate Consistent w auto 06/03/21 07:55 Clumped Platelets Not Reportable 06/03/21 07:55 Plt Clumps, EDTA Not Reportable 06/03/21 07:55 Large Platelets Not Reportable 06/03/21 07:55 Giant Platelets Not Reportable 06/03/21 07:55 Platelet Satelliting Not Reportable 06/03/21 07:55 Plt Morphology Comment Not Reportable 06/03/21 07:55 RBC Morphology Normal 06/03/21 07:55 Dimorphic RBCs Not Reportable 06/03/21 07:55 Polychromasia Not Reportable 06/03/21 07:55 Hypochromasia Not Reportable 06/03/21 07:55 Poikilocytosis Not Reportable 06/03/21 07:55 Anisocytosis Not Reportable 06/03/21 07:55 Microcytosis Not Reportable 06/03/21 07:55 Macrocytosis Not Reportable 06/03/21 07:55 Spherocytes Not Reportable 06/03/21 07:55 Pappenheimer Bodies Not Reportable 06/03/21 07:55 Sickle Cells Not Reportable 06/03/21 07:55 Target Cells Not Reportable 06/03/21 07:55 Tear Drop Cells Not Reportable 06/03/21 07:55 Ovalocytes Not Reportable 06/03/21 07:55 Helmet Cells Not Reportable 06/03/21 07:55 [place] Bodies Not Reportable 06/03/21 07:55 [place] Rings Not Reportable 06/03/21 07:55 [place] Cells Not Reportable 06/03/21 07:55 Bite Cells Not Reportable 06/03/21 07:55 Crenated Cell Not Reportable 06/03/21 07:55 Elliptocytes Not Reportable 06/03/21 07:55 Acanthocytes (Spur) Not Reportable 06/03/21 07:55 Rouleaux Not Reportable 06/03/21 07:55 Hemoglobin C Crystals Not Reportable 06/03/21 07:55 Schistocytes Not Reportable 06/03/21 07:55 Malaria parasites Not Reportable 06/03/21 07:55 Leo Bodies Not Reportable 06/03/21 07:55 Hem Pathologist Commnt No 06/03/21 07:55 Sodium 129 mmol/L (137-145) L 06/04/21 05:59 Potassium 3.7 mmol/L (3.6-5.0) 06/04/21 05:59 Chloride 92.8 mmol/L (98-107) L 06/04/21 05:59 Carbon Dioxide 24 mmol/L (22-30) 06/04/21 05:59 Anion Gap 16 mmol/L 06/04/21 05:59 BUN 10 mg/dL (7-17) 06/04/21 05:59 Creatinine 0.6 mg/dL (0.6-1.2) 06/04/21 05:59 Estimated GFR > 60 ml/min 06/04/21 05:59 BUN/Creatinine Ratio 17 % 06/04/21 05:59 Glucose 88 mg/dL (65-100) 06/04/21 05:59 Lactic Acid 0.90 mmol/L (0.7-2.0) 06/03/21 07:55 Calcium 9.0 mg/dL (8.4-10.2) 06/04/21 05:59 Total Bilirubin 0.50 mg/dL (0.1-1.2) 06/02/21 16:25 AST 25 units/L (5-40) 06/02/21 16:25 ALT 35 units/L (7-56) 06/02/21 16:25 Alkaline Phosphatase 107 units/L (35-129) 06/02/21 16:25 Total Creatine Kinase 171 units/L (30-135) H 06/02/21 16:29 Total Protein 7.4 g/dL (6.3-8.2) 06/02/21 16:25 Albumin 3.7 g/dL (3.9-5) L 06/02/21 16:25 Albumin/Globulin Ratio 1.0 % 06/02/21 16:25 Blood Type B POSITIVE 06/02/21 18:18 Antibody Screen Negative 06/02/21 18:18 Microbiology: Microbiology 06/02/21 16:29 Peripheral/Venous Blood Culture - Preliminary NO GROWTH AFTER 48 HOURS 06/02/21 16:25 Peripheral/Venous Blood Culture - Preliminary NO GROWTH AFTER 24 HOURS Astudillo/IV: Voiding Method Toilet Active Medications - Current Medications Current Medications: Generic Name Dose Route Start Last Admin Trade Name Freq PRN Reason Stop Dose Admin Acetaminophen 650 mg 06/02/21 17:33 Acetaminophen 325 Mg Tab PO Q4H PRN Pain MILD(1-3)/Fever >100.5/DAMIAN Albuterol 2.5 mg 06/02/21 17:33 Albuterol 2.5 Mg/3 Ml Nebu IH Q4HRT PRN Shortness Of Breath Hydrochlorothiazide 25 mg 06/03/21 10:00 06/04/21 10:06 Hydrochlorothiazide 25 Mg Tab PO 25 mg QDAY LALITA Administration Hydromorphone HCl 0.5 mg 06/02/21 17:33 06/04/21 22:46 Hydromorphone 1 Mg/1 Ml Inj IV 0.5 mg Q12H PRN Administration Pain , Severe (7-10) Clindamycin HCl 600 mg in 50 mls @ 100 mls/hr 06/02/21 18:00 06/04/21 22:48 Cleocin 600 Mg/50 Ml IV 100 mls/hr Q8H LALITA Administration Protocol Acyclovir 590 mg/ Sodium 111.8 mls @ 100 mls/hr 06/02/21 22:00 06/05/21 06:12 Chloride IV 100 mls/hr Q8HR LALITA Administration Protocol Metoprolol Tartrate 25 mg 06/02/21 22:00 06/04/21 22:45 Metoprolol Tartrate 25 Mg Tab PO 25 mg BID LALITA Administration Ondansetron HCl 4 mg 06/02/21 17:33 Ondansetron 4 Mg/2 Ml Inj IV Q8H PRN Nausea And Vomiting Oxycodone/Acetaminophen 1 tab 06/02/21 17:33 06/05/21 06:12 Oxycodone /Acetaminophen 5-325mg Tab PO 1 tab Q6H PRN Administration Pain, Moderate (4-6) Sodium Chloride 10 ml 06/02/21 22:00 06/04/21 22:40 Sodium Chloride 0.9% 10 Ml Flush Syringe IV 10 ml BID LALITA Administration Sodium Chloride 10 ml 06/02/21 17:33 Sodium Chloride 0.9% 10 Ml Flush Syringe IV PRN PRN LINE FLUSH
[2021-06-05] MEDS: CLINDAMYCIN 600 MG/50 mL 600 MG/50 ML BAG IV SCH ×3 (08:06→18:19)
[2021-06-05 08:34] LABS: Hematocrit 41.5 % (30.3-42.9); Hemoglobin 13.7 gm/dl (10.1-14.3); Mean Corpuscular HGB Conc 33 % (30-34); Mean Corpuscular Volume 85 fl (79-97); Platelet Count 228 K/mm3 (140-440); Red Blood Count 4.88 M/mm3 (3.65-5.03); Red Cell Distribution Width 13.4 % (13.2-15.2)
[2021-06-05 08:53] LABS: Blood Urea Nitrogen 12 mg/dL (7-17); Calcium 9.3 mg/dL (8.4-10.2); Hemolysis Index 2
[2021-06-05 09:37] LABS: BUN/Creatinine Ratio 17
[2021-06-05] MEDS: hydroCHLOROthiazide 25 MG TAB PO SCH (10:34)
[2021-06-05] MEDS: METOPROLOL TARTRATE 25 MG TAB PO SCH ×2 (10:34→22:19)
[2021-06-05] MEDS ORDERED: SODIUM CHLORIDE 0.9% 50 ML IVPB IV PRN (14:44)
[2021-06-06] MEDS: CLINDAMYCIN 600 MG/50 mL 600 MG/50 ML BAG IV SCH ×3 (01:37→17:10)
[2021-06-06] MEDS: ACYCLOVIR IV SCH ×3 (06:31→23:45)
[2021-06-06] MEDS: SODIUM CHLORIDE 0.9% IV SCH ×3 (06:31→23:45)
[2021-06-06] MEDS: METOPROLOL TARTRATE 25 MG TAB PO SCH ×2 (09:10→23:45)
[2021-06-06] MEDS: hydroCHLOROthiazide 25 MG TAB PO SCH (09:10)
--- NOTE | 2021-06-06 09:44 | Progress Note ---
Assessment and Plan Assessment and plan: 55 YO Female with Nicotine Dependence, HTN, RICHY presents to ED for evaluation. Patient states that she had experienced a painful skin rash over the past 1 week. Patient states that the rash began in the area of her left ear but has subsequently spread to her left neck, left shoulder left back as well as left chest. Patient acknowledges fever to 103 F. Fever to 103 F, tachycardia with a heart rate in the 140s, and respiratory rate in the 20s. Patient found to have sepsis secondary to disseminated zoster infection complicated by cellulitis. Patient denies chills, chest pain, palpitation, adductive cough, skin rash, recent ill contacts, eye pain, blurred vision, recent ill contacts, known exposure to COVID-19. #Extensive herpes zoster involving entire left half of neck, lower occipital scalp and lobe of left pinna. The rash is contiguous and strictly in dermatome pattern. Rash is not skipping or bilateral. Rash is not disseminated. #Cellulitis -Patient unvaccinated for shingles; history of chickenpox in childhood. No history of shingles in the past. No history of HIV. -Blood cultures no growth to date x48 hours. No evidence of systemic sepsis. -Continue IV acyclovir and clindamycin -As needed pain control -Continue contact precautions -Infectious disease consulted, HIV test ordered, as patient discharged p.o. acyclovir and clindamycin to complete a 7-day course. #Hypertension -Continue metoprolol and hydrochlorothiazide #Hyponatremia-resolved -likely hypovolemic hyponatremia -s/p IVFs -will continue to monitor Disposition: As above History Interval history: The rash on the left side of neck seems to be drying. No significant drainage. Pain controlled. Not complaining of any earache. Afebrile. Vital signs stab le. On IV acyclovir. Hospitalist Physical - Constitutional Vitals: Temp Pulse Resp BP Pulse Ox 98.2 F 77 16 182/92 98 06/06/21 06:33 06/05/21 22:19 06/06/21 06:33 06/06/21 06:33 06/06/21 07:53 General appearance: Present: mild distress, other (Alert and oriented) - EENT Eyes: Present: PERRL, EOM intact ENT: hearing intact - Neck Neck: Present: supple - Respiratory Respiratory effort: normal Respiratory: bilateral: CTA - Cardiovascular Rhythm: regular - Extremities Extremities: No edema - Abdominal General gastrointestinal: soft, non-tender, non-distended - Integumentary Integumentary: Present: rash (Typical herpes zoster rash involving entire left s lisbet of neck and lower suboccipital scalp and lobe of left pinna but not auditory canal. The rash is unilateral and contiguous strictly in dermatomal pattern. No skip lesions.) - Psychiatric Psychiatric: appropriate mood/affect - Neurologic Neurologic: no focal deficits, moves all extremities, other (Alert and oriented, normal speech) Results - Labs CBC & Chem 7: 06/05/21 08:04 06/06/21 09:16 Labs: Laboratory Last Values WBC 3.7 K/mm3 (4.5-11.0) L 06/05/21 08:04 RBC 4.88 M/mm3 (3.65-5.03) 06/05/21 08:04 Hgb 13.7 gm/dl (10.1-14.3) 06/05/21 08:04 Hct 41.5 % (30.3-42.9) 06/05/21 08:04 MCV 85 fl (79-97) 06/05/21 08:04 MCH 28 pg (28-32) 06/05/21 08:04 MCHC 33 % (30-34) 06/05/21 08:04 RDW 13.4 % (13.2-15.2) 06/05/21 08:04 Plt Count 228 K/mm3 (140-440) 06/05/21 08:04 [place] % (Auto) Power Supply Engineer 06/03/21 07:55 Baso % (Auto) Power Supply Engineer 06/03/21 07:55 Add Manual Diff Complete 06/03/21 07:55 Total Counted 100 06/03/21 07:55 Seg Neuts % (Manual) 56.0 % (40.0-70.0) 06/03/21 07:55 Band Neutrophils % 0 % 06/03/21 07:55 Lymphocytes % (Manual) 19.0 % (13.4-35.0) 06/03/21 07:55 Reactive Lymphs % (Man) 8.0 % 06/03/21 07:55 Monocytes % (Manual) 14.0 % (0.0-7.3) H 06/03/21 07:55 Eosinophils % (Manual) 2.0 % (0.0-4.3) 06/03/21 07:55 Basophils % (Manual) 1.0 % (0.0-1.8) 06/03/21 07:55 Metamyelocytes % 0 % 06/03/21 07:55 Myelocytes % 0 % 06/03/21 07:55 Promyelocytes % 0 % 06/03/21 07:55 Blast Cells % 0 % 06/03/21 07:55 Nucleated RBC % Not Reportable 06/03/21 07:55 Seg Neutrophils # Man 2.5 K/mm3 (1.8-7.7) 06/03/21 07:55 Band Neutrophils # 0.0 K/mm3 06/03/21 07:55 Lymphocytes # (Manual) 0.9 K/mm3 (1.2-5.4) L 06/03/21 07:55 Abs React Lymphs (Man) 0.4 K/mm3 06/03/21 07:55 Monocytes # (Manual) 0.6 K/mm3 (0.0-0.8) 06/03/21 07:55 Eosinophils # (Manual) 0.1 K/mm3 (0.0-0.4) 06/03/21 07:55 Basophils # (Manual) 0.0 K/mm3 (0.0-0.1) 06/03/21 07:55 Metamyelocytes # 0.0 K/mm3 06/03/21 07:55 Myelocytes # 0.0 K/mm3 06/03/21 07:55 Promyelocytes # 0.0 K/mm3 06/03/21 07:55 Blast Cells # 0.0 K/mm3 06/03/21 07:55 WBC Morphology Not Reportable 06/03/21 07:55 WBC Morphology TNR 06/03/21 07:55 Hypersegmented Neuts Not Reportable 06/03/21 07:55 Hyposegmented Neuts Not Reportable 06/03/21 07:55 Hypogranular Neuts Not Reportable 06/03/21 07:55 Smudge Cells Not Reportable 06/03/21 07:55 Toxic Granulation Not Reportable 06/03/21 07:55 Toxic Vacuolation Not Reportable 06/03/21 07:55 Dohle Bodies Not Reportable 06/03/21 07:55 Pelger-Huet Anomaly Not Reportable 06/03/21 07:55 Neena Rods Not Reportable 06/03/21 07:55 Platelet Estimate Consistent w auto 06/03/21 07:55 Clumped Platelets Not Reportable 06/03/21 07:55 Plt Clumps, EDTA Not Reportable 06/03/21 07:55 Large Platelets Not Reportable 06/03/21 07:55 Giant Platelets Not Reportable 06/03/21 07:55 Platelet Satelliting Not Reportable 06/03/21 07:55 Plt Morphology Comment Not Reportable 06/03/21 07:55 RBC Morphology Normal 06/03/21 07:55 Dimorphic RBCs Not Reportable 06/03/21 07:55 Polychromasia Not Reportable 06/03/21 07:55 Hypochromasia Not Reportable 06/03/21 07:55 Poikilocytosis Not Reportable 06/03/21 07:55 Anisocytosis Not Reportable 06/03/21 07:55 Microcytosis Not Reportable 06/03/21 07:55 Macrocytosis Not Reportable 06/03/21 07:55 Spherocytes Not Reportable 06/03/21 07:55 Pappenheimer Bodies Not Reportable 06/03/21 07:55 Sickle Cells Not Reportable 06/03/21 07:55 Target Cells Not Reportable 06/03/21 07:55 Tear Drop Cells Not Reportable 06/03/21 07:55 Ovalocytes Not Reportable 06/03/21 07:55 Helmet Cells Not Reportable 06/03/21 07:55 Payton-Huson Bodies Not Reportable 06/03/21 07:55 Firestone Rings Not Reportable 06/03/21 07:55 [place] Cells Not Reportable 06/03/21 07:55 Bite Cells Not Reportable 06/03/21 07:55 Crenated Cell Not Reportable 06/03/21 07:55 Elliptocytes Not Reportable 06/03/21 07:55 Acanthocytes (Spur) Not Reportable 06/03/21 07:55 Rouleaux Not Reportable 06/03/21 07:55 Hemoglobin C Crystals Not Reportable 06/03/21 07:55 Schistocytes Not Reportable 06/03/21 07:55 Malaria parasites Not Reportable 06/03/21 07:55 Leo Bodies Not Reportable 06/03/21 07:55 Hem Pathologist Commnt No 06/03/21 07:55 Sodium 140 mmol/L (137-145) D 06/05/21 08:04 Potassium 4.4 mmol/L (3.6-5.0) 06/05/21 08:04 Chloride 100.5 mmol/L (98-107) 06/05/21 08:04 Carbon Dioxide 28 mmol/L (22-30) 06/05/21 08:04 Anion Gap 16 mmol/L 06/05/21 08:04 BUN 12 mg/dL (7-17) 06/05/21 08:04 Creatinine 0.7 mg/dL (0.6-1.2) 06/05/21 08:04 Estimated GFR > 60 ml/min 06/05/21 08:04 BUN/Creatinine Ratio 17 % 06/05/21 08:04 Glucose 92 mg/dL (65-100) 06/05/21 08:04 Lactic Acid 0.90 mmol/L (0.7-2.0) 06/03/21 07:55 Calcium 9.3 mg/dL (8.4-10.2) 06/05/21 08:04 Total Bilirubin 0.50 mg/dL (0.1-1.2) 06/02/21 16:25 AST 25 units/L (5-40) 06/02/21 16:25 ALT 35 units/L (7-56) 06/02/21 16:25 Alkaline Phosphatase 107 units/L (35-129) 06/02/21 16:25 Total Creatine Kinase 171 units/L (30-135) H 06/02/21 16:29 Total Protein 7.4 g/dL (6.3-8.2) 06/02/21 16:25 Albumin 3.7 g/dL (3.9-5) L 06/02/21 16:25 Albumin/Globulin Ratio 1.0 % 06/02/21 16:25 Blood Type B POSITIVE 06/02/21 18:18 Antibody Screen Negative 06/02/21 18:18 Microbiology: Microbiology 06/02/21 16:25 Peripheral/Venous Blood Culture - Preliminary NO GROWTH AFTER 72 HOURS 06/02/21 16:29 Peripheral/Venous Blood Culture - Preliminary NO GROWTH AFTER 72 HOURS [place]illo/IV: Voiding Method Toilet Active Medications - Current Medications Current Medications: Generic Name Dose Route Start Last Admin Trade Name Freq PRN Reason Stop Dose Admin Acetaminophen 650 mg 06/02/21 17:33 Acetaminophen 325 Mg Tab PO Q4H PRN Pain MILD(1-3)/Fever >100.5/DAMIAN Albuterol 2.5 mg 06/02/21 17:33 Albuterol 2.5 Mg/3 Ml Nebu IH Q4HRT PRN Shortness Of Breath Hydrochlorothiazide 25 mg 06/03/21 10:00 06/06/21 09:10 Hydrochlorothiazide 25 Mg Tab PO 25 mg QDAY LALITA Administration Hydromorphone HCl 0.5 mg 06/02/21 17:33 06/04/21 22:46 Hydromorphone 1 Mg/1 Ml Inj IV 0.5 mg Q12H PRN Administration Pain , Severe (7-10) Clindamycin HCl 600 mg in 50 mls @ 100 mls/hr 06/02/21 18:00 06/06/21 09:10 Cleocin 600 Mg/50 Ml IV 100 mls/hr Q8H LALITA Administration Protocol Acyclovir 590 mg/ Sodium 111.8 mls @ 100 mls/hr 06/02/21 22:00 06/06/21 06:31 Chloride IV 100 mls/hr Q8HR LALITA Administration Protocol Metoprolol Tartrate 25 mg 06/02/21 22:00 06/06/21 09:10 Metoprolol Tartrate 25 Mg Tab PO 25 mg BID LALITA Administration Ondansetron HCl 4 mg 06/02/21 17:33 Ondansetron 4 Mg/2 Ml Inj IV Q8H PRN Nausea And Vomiting Oxycodone/Acetaminophen 1 tab 06/02/21 17:33 06/05/21 20:54 Oxycodone /Acetaminophen 5-325mg Tab PO 1 tab Q6H PRN Administration Pain, Moderate (4-6) Sodium Chloride 10 ml 06/02/21 22:00 06/06/21 09:12 Sodium Chloride 0.9% 10 Ml Flush Syringe IV 10 ml BID LALITA Administration Sodium Chloride 10 ml 06/05/21 14:44 Sodium Chloride 0.9% 50 Ml Ivpb IV PRN PRN FLUSH
[2021-06-06 09:59] LABS: Blood Urea Nitrogen 10 mg/dL (7-17); Calcium 9.7 mg/dL (8.4-10.2); Hemolysis Index 2
[2021-06-06 10:06] LABS: BUN/Creatinine Ratio 17
[2021-06-06] MEDS: oxyCODONE /ACETAMINOPHEN 5-325MG TAB PO PRN (10:58)
--- NOTE | 2021-06-06 13:39 | Consultation ---
History of Present Illness - Reason for Consult Consult date: 06/06/21 - History of Present Illness 55 yo F PMHx tobacco dependence, HTN, RICHY presented to the hospital complaining of painful skin rash for 1 week prior to admission. It initially began over her left ear and spread down and across her chest. She reports fevers measured at home. SHe was found to have possible disseminated Zoster with cellulitis. Febrile on admission, now afebrile. White count now 3.7. Cultures negative. Imaging personally reviewed: None available Review of Systems: Bold if positive, otherwise negative General: fevers, chills, rigors HEENT: visual disturbance, diplopia, eye pain Respiratory: cough, sputum, hemoptysis, shortness of breath Cardiovascular: chest pain, syncope Gastrointestinal: nausea, vomiting, diarrhea, abdominal pain Genitourinary: dysuria, hematuria, flank pain Musculoskeletal: neck pain, back pain, joint pain, edema Neurologic: headaches, seizures Hematologic: easy bruising or bleeding Endocrine: night sweats, acute weight loss Skin: rash, jaundice, redness Psychiatric: suicidal, homicidal ideation Past History Past Medical History: hypertension, other (See HPI) Past Surgical History: Other (Right knee surgery) Social history: , lives with family, smoking Family history: hypertension Medications and Allergies Allergies Allergy/AdvReac Type Severity Reaction Status Date / Time No Known Allergies Allergy Verified 06/02/13 12:06 Home Medications Medication Instructions Recorded Confirmed Last Taken Type No Known Home Medications [No 06/03/21 06/03/21 Unknown History Reported Home Medications] Active Meds: Active Medications Acetaminophen (Acetaminophen 325 Mg Tab) 650 mg PO Q4H PRN PRN Reason: Pain MILD(1-3)/Fever >100.5/DAMIAN Albuterol (Albuterol 2.5 Mg/3 Ml Nebu) 2.5 mg IH Q4HRT PRN PRN Reason: Shortness Of Breath Hydrochlorothiazide (Hydrochlorothiazide 25 Mg Tab) 25 mg PO QDAY LALITA Last Admin: 06/06/21 09:10 Dose: 25 mg Hydromorphone HCl (Hydromorphone 1 Mg/1 Ml Inj) 0.5 mg IV Q12H PRN PRN Reason: Pain , Severe (7-10) Last Admin: 06/04/21 22:46 Dose: 0.5 mg Clindamycin HCl (Cleocin 600 Mg/50 Ml) 600 mg in 50 mls @ 100 mls/hr IV Q8H LALITA; Protocol Last Admin: 06/06/21 09:10 Dose: 100 mls/hr Acyclovir 590 mg/ Sodium (Chloride) 111.8 mls @ 100 mls/hr IV Q8HR LALITA; Protocol Last Admin: 06/06/21 06:31 Dose: 100 mls/hr Metoprolol Tartrate (Metoprolol Tartrate 25 Mg Tab) 25 mg PO BID LALITA Last Admin: 06/06/21 09:10 Dose: 25 mg Ondansetron HCl (Ondansetron 4 Mg/2 Ml Inj) 4 mg IV Q8H PRN PRN Reason: Nausea And Vomiting Oxycodone/Acetaminophen (Oxycodone /Acetaminophen 5-325mg Tab) 1 tab PO Q6H PRN PRN Reason: Pain, Moderate (4-6) Last Admin: 06/06/21 10:58 Dose: 1 tab Sodium Chloride (Sodium Chloride 0.9% 10 Ml Flush Syringe) 10 ml IV BID LALITA Last Admin: 06/06/21 09:12 Dose: 10 ml Sodium Chloride (Sodium Chloride 0.9% 50 Ml Ivpb) 10 ml IV PRN PRN PRN Reason: FLUSH Physical Examination - Physical Exam Narrative exam: Physical exam deferred to reduce risk of transmission of COVID-19. Please refer to primary team's note. - Constitutional Vitals: Vital Signs Temp Pulse Resp BP Pulse Ox 98.2 F 77 16 182/92 98 06/06/21 06:33 06/05/21 22:19 06/06/21 06:33 06/06/21 06:33 06/06/21 07:53 Temperature -Last 24 Hours Temperature 98.2 F Temperature 98.2 F Temperature 98.8 F Results - Labs CBC & Chem 7: 06/05/21 08:04 06/06/21 09:16 Labs: Abnormal lab results 06/06/21 Range/Units 09:16 Chloride 96.9 L (98-107) mmol/L Assessment and Plan Cultures: None A/P: 55 yo F PMHx tobacco dependence, HTN, RICHY now with: #Zoster with cellulitis: would complete 7 days acyclovir/Valtrex (acyclovir is usually cheaper) with Bactrim. Unclear why disseminated without history of immunocompromise. #Leukopenia: would check for HIV, otherwise may be temporarily lowered by infection. #Tobacco dependence. Recs: -Can DC with: -acyclovir PO 800mg 5 times daily or Valtrex 1g TID to compelte 7 days treatment. -Clindamycin 450mg q8h to complete 7 days. -Would check HIV testing. Thank you for the consult, we will continue to follow. Patricia Gomez MD [facility] ([facility] O: [phone] F: [phone]
[2021-06-06 23:44] VITALS: BP 159/91
[2021-06-07] MEDS: CLINDAMYCIN 600 MG/50 mL 600 MG/50 ML BAG IV SCH ×3 (06:17→17:42)
[2021-06-07] MEDS: SODIUM CHLORIDE 0.9% IV SCH ×3 (06:45→21:23)
[2021-06-07] MEDS: ACYCLOVIR IV SCH ×3 (06:45→21:23)
[2021-06-07] MEDS: METOPROLOL TARTRATE 25 MG TAB PO SCH ×2 (10:57→21:23)
[2021-06-07] MEDS: hydroCHLOROthiazide 25 MG TAB PO SCH (10:57)
--- NOTE | 2021-06-07 12:37 | Progress Note ---
Assessment and Plan Cultures: None A/P: 55 yo F PMHx tobacco dependence, HTN, RICHY now with: #Zoster with cellulitis: would complete 7 days acyclovir/Valtrex (acyclovir is usually cheaper) with Bactrim. Unclear why disseminated without history of immunocompromise. #Leukopenia: would check for HIV, otherwise may be temporarily lowered by infection. #Tobacco dependence. Recs: -Can DC with: -acyclovir PO 800mg 5 times daily or Valtrex 1g TID to complete 7 days treatment. -Clindamycin 450mg q8h to complete 7 days. -Would check HIV testing. Thank you for the consult, we will continue to follow. Patricia Gomez MD [facility] ([facility] O: [phone] F: [phone] Subjective Date of service: 06/07/21 Interval history: Afebrile, no acute change. Objective - Exam Narrative Exam: Physical exam deferred to reduce risk of transmission of COVID-19. Please refer to primary team's note. - Constitutional Vitals: Vital Signs Temp Pulse Resp BP Pulse Ox 97.9 F 87 17 159/91 98 06/06/21 22:19 06/07/21 10:57 06/07/21 05:30 06/06/21 23:45 06/07/21 05:30 Temperature -Last 24 Hours Temperature 97.9 F Temperature 98.9 F - Labs CBC & Chem 7: 06/05/21 08:04 06/06/21 09:16
--- NOTE | 2021-06-07 18:37 | Discharge Summary ---
Providers - Providers Date of Admission: 06/02/21 17:34 Attending physician: OLEG ROSE MD 06/02/21 17:55 Consult to Wound/ET Nurse [CONS] Routine Reason For Exam: wound eval 06/05/21 13:37 Consult to Physician [CONS] Routine Comment: Consulting Provider: GAGANDEEP WALLACE Physician Instructions: Reason For Exam: outpatient abx recommendations Primary care physician: SHOT FIREMAN Hospitalization Condition: Good Disposition: 30 STILL A PATIENT Exam - Constitutional Vitals: Temp Pulse Resp BP Pulse Ox 97.9 F 87 17 159/91 96 06/06/21 22:19 06/07/21 10:57 06/07/21 05:30 06/06/21 23:45 06/07/21 12:25 Plan Activity: no restrictions Diet: regular Follow up with: CANDIS DONATO MD [Primary Care Provider] - 3-5 Days GAGANDEEP WALLACE MD [Staff Physician] - 14 Days Prescriptions: Clindamycin [Clindamycin CAP] 300 mg PO Q8H #9 cap Gabapentin 300 mg PO BID #30 cap Valacyclovir HCl [Valtrex] 1,000 mg PO TID #9 each
== END 2021-06-07 23:00 | disposition home or self-care (01) | DRG 603 ==
LOC: ED 13:58 → 3A 17:34
PROVIDERS: ADMIT Internal Medicine; ATTEND Internal Medicine
DX: L03.221 Cellulitis of neck (principal); E87.1 Hypo-osmolality and hyponatremia; F17.213 Nicotine dependence, cigarettes, with withdrawal; I10 Essential (primary) hypertension; F41.1 Generalized anxiety disorder; E11.9 Type 2 diabetes mellitus without complications; B02.9 Zoster without complications; Z82.49 Family history of ischemic heart disease and other diseases of the circulatory system
CPT/HCPCS: 36415; 80048; 80053; 82140; 82550; 85007; 85025; 85027; 86850; 86900; 86901; 87040; G0378; J7502; Q0162; J0133; J0690; J1170; J7030; J7120